=== PATIENT | female | born 1965 | race Hispanic/Latino ===

== ENCOUNTER → 2024-12-16 | Outpatient (REF) | payer OTHER ==
[~2024-12-16] MED LIST: IOPAMIDOL 370 MG/ML 100 ML INFUS..BTL INJ ONE
[2024-12-16 16:09] LABS: CREATININE, SERUM 0.7 mg/dL (0.57-1.11)
== END ==
LOC: CT 15:12
PROVIDERS: ATTEND Internal Medicine Critical Care Medicine
DX: J47.9 Bronchiectasis, uncomplicated (principal); R91.8 Other nonspecific abnormal finding of lung field; M34.9 Systemic sclerosis, unspecified
CPT/HCPCS: 36415; 71260; 82565; 84520; Q9967